=== PATIENT | female | born 1990 | race Caucasian/White ===

== ENCOUNTER 2017-06-28 10:47 | Emergency (ER) | payer MEDICAID ==
[~2017-06-28] VITALS: Ht 170.2 cm; Wt 80.6 kg
[2017-06-28] MEDS ORDERED: LORazepam 1 MG tablet PO ONE (11:40)
[2017-06-28] MEDS ORDERED: diphenhydrAMINE 25mg capsule PO ONE (11:40)
[2017-06-28 11:51] LABS: BASOPHILS % (AUTO) 0.4 % (0-1); EOSINOPHILS # (AUTO) 0.2 X10'3 (0-0.9); EOSINOPHILS % (AUTO) 1.9 % (0-6); HEMATOCRIT 38.3 % (35.0-45.0); HEMOGLOBIN 13.4 g/dl (12.0-16.0); LYMPHOCYTES # (AUTO) 2.9 X10'3 (1.1-4.8); LYMPHOCYTES % (AUTO) 32.8 % (21-51); MEAN CORPUSCULAR HEMOGLOBIN 32.1 PG (27.0-31.0); MEAN CORPUSCULAR HGB CONC 35.1 % (33.0-36.5); MEAN CORPUSCULAR VOLUME 91.3 FL (78-98); MEAN PLATELET VOLUME 7.4 FL (7.4-10.4); MONOCYTES # (AUTO) 1.1 X10'3 (0-0.9); MONOCYTES % (AUTO) 12.3 % (2-12); NEUTROPHILS # (AUTO) 4.7 X10'3 (1.8-7.7); NEUTROPHILS % (AUTO) 52.6 % (42-75); PLATELET COUNT 273 X10'3 (140-440); RED BLOOD COUNT 4.19 X10'6 (4.20-5.60); RED CELL DISTRIBUTION WIDTH 13.9 % (11.5-14.5); WHITE BLOOD COUNT 8.9 X10'3 (4.5-11.0)
[2017-06-28 12:02] LABS: ALANINE AMINOTRANSFERASE 34 U/L (12-78); ALBUMIN 4.2 G/DL (3.4-5.0); ALBUMIN/GLOBULIN RATIO 1.2 (1.1-1.5); ALKALINE PHOSPHATASE 72 IU/L (46-116); ANION GAP 11 (8-16); ASPARTATE AMINO TRANSFERASE 47 U/L (10-37); BILIRUBIN,TOTAL 0.5 MG/DL (0.1-1.0); BLOOD UREA NITROGEN 27 MG/DL (7-18); CALCIUM 9.1 MG/DL (8.5-10.1); CHLORIDE 104 MMOL/L (99-107); GLUCOSE 86 MG/DL (70-104); POTASSIUM 4.4 MMOL/L (3.5-5.1); SODIUM 141 MMOL/L (135-145); TOTAL CARBON DIOXIDE 25.6 MMOL/L (24-32); TOTAL PROTEIN 7.8 G/DL (6.4-8.2); eGFR 68 ML/MIN
[2017-06-28 12:11] LABS: URINE HCG NEGATIVE (NEG)
[2017-06-28 12:12] LABS: CLARITY,URINE CLOUDY (Clear); GLUCOSE, URINE NEGATIVE (Neg); KETONES,URINE TRACE mg/dl (Neg); LEUKOCYTE ESTERASE ,URINE NEGATIVE (Neg); NITRITES, URINE NEGATIVE (Neg); OCCULT BLOOD,URINE NEGATIVE (Neg); PH,URINE 5.5 (4.8-8.0); PROTEIN,URINE NEGATIVE (Neg)
[2017-06-28] MEDS ORDERED: CLON-527 PO (12:12)
[2017-06-28] MEDS ORDERED: DIVA500T7 PO (12:12)
[2017-06-28] MEDS ORDERED: BUPR150T8 PO (12:12)
[2017-06-28] MEDS ORDERED: ESCI10TA54 PO (12:12)
[2017-06-28] MEDS ORDERED: ZIPR80CA2 PO (12:12)
[2017-06-28] MEDS ORDERED: QUET-1 PO (12:12)
[2017-06-28] MEDS ORDERED: DIVA-81 PO ×2 (12:12)
[2017-06-28 12:14] LABS: UA COLLECTION TYPE CLN CATCH MIDSTREAM
[2017-06-28 12:15] LABS: COLOR,URINE DARK YELLOW (Yellow)
[2017-06-28 12:20] LABS: BACTERIA,URINE 1+ /HPF (Neg); HYALINE CASTS 0-3 /LPF (NEGATIVE); MUCUS STRANDS MANY /LPF (Neg); RBC,URINE NONE SEEN /HPF (0-2); SQUAMOUS EPITHELIAL CELL,UR MANY /LPF (FEW); URINE AMPHETAMINE SCREEN POSITIVE (Neg); URINE BARBITUATE SCREEN NEGATIVE (Neg); URINE BENZODIAZEPINES SCREEN NEGATIVE (Neg); URINE CANNABINOID SCREEN POSITIVE (Neg); URINE COCAINE SCREEN NEGATIVE (Neg); URINE METHADONE SCREEN NEGATIVE (Neg); URINE OPIATE SCREEN NEGATIVE (Neg); URINE PHENCYCLIDINE SCREEN NEGATIVE (Neg)
[2017-06-28] MEDS ORDERED: cephalexin 250mg capsule PO SCH (12:40)
[2017-06-28] MEDS: cephalexin 500mg capsule PO SCH ×3 (13:13→21:00)
[2017-06-29] MEDS: cephalexin 500mg capsule PO SCH ×3 (07:36→21:13)
[2017-06-29] MEDS ORDERED: risperiDONE 0.5mg tablet PO PRN (12:35)
[2017-06-29] MEDS ORDERED: LORazepam 1 MG tablet PO PRN (12:50)
[2017-06-29] MEDS ORDERED: LORazepam 2 mg/ml vial IM PRN (12:50)
[2017-06-29] MEDS ORDERED: diphenhydrAMINE 25mg capsule PO PRN (12:55)
[2017-06-29] MEDS ORDERED: diphenhydrAMINE 50 mg/ml inj IM PRN (13:00)
[2017-06-29] MEDS: lactobacillus rhamnosus 10,000 MMU CELLS/CAPSULE PO SCH (17:30)
[2017-06-29] MEDS ORDERED: ibuprofen tablet 400 MG TABLET PO PRN (21:05)
[2017-06-30] MEDS: lactobacillus rhamnosus 10,000 MMU CELLS/CAPSULE PO SCH ×2 (08:08→17:59)
[2017-06-30] MEDS: cephalexin 500mg capsule PO SCH ×2 (08:08→14:11)
[2017-06-30 17:57] VITALS: BP 112/70
== END 2017-06-30 20:08 ==
LOC: ER 10:48
DX: F41.9 Anxiety disorder, unspecified (principal); N39.0 Urinary tract infection, site not specified; R45.851 Suicidal ideations; M54.5 Low back pain; F11.10 Opioid abuse, uncomplicated; F15.10 Other stimulant abuse, uncomplicated; F12.10 Cannabis abuse, uncomplicated; F32.9 Major depressive disorder, single episode, unspecified; F17.210 Nicotine dependence, cigarettes, uncomplicated; Z59.0 Homelessness; Z56.0 Unemployment, unspecified; Z98.890 Other specified postprocedural states; Z79.899 Other long term (current) drug therapy
CPT/HCPCS: 36415; 80053; 80305; 80320; 81001; 81025; 84443; 85025; 99285; Q0163

== ENCOUNTER 2018-02-18 01:00 | Emergency (ER) | payer MEDICAID ==
[~2018-02-18] VITALS: Ht 170.2 cm; Wt 72.0 kg
[~2018-02-18 01:00] MED LIST: BUPR150T8 PO; CLON-527 PO; DIVA-76 PO; DIVA-81 PO; ESCI10TA54 PO; QUET-1 PO; ZIPR80CA2 PO
[2018-02-18] MEDS ORDERED: ondansetron 4mg rapidly disintigrating tab PO ONE (02:00)
[2018-02-18 02:25] LABS: URINE HCG NEGATIVE (NEG)
[2018-02-18 02:26] LABS: CLARITY,URINE CLEAR (Clear); COLOR,URINE YELLOW (Yellow); GLUCOSE, URINE NEGATIVE (Neg); KETONES,URINE 15 mg/dl (Neg); LEUKOCYTE ESTERASE ,URINE NEGATIVE (Neg); NITRITES, URINE NEGATIVE (Neg); OCCULT BLOOD,URINE NEGATIVE (Neg); PROTEIN,URINE TRACE mg/dl (Neg); UROBILINOGEN,URINE 0.2 E.U/dL (0.2-1.0)
[2018-02-18 02:27] LABS: UA COLLECTION TYPE CLN CATCH MIDSTREAM
[2018-02-18 02:36] LABS: URINE AMPHETAMINE SCREEN POSITIVE (Neg); URINE BARBITUATE SCREEN NEGATIVE (Neg); URINE BENZODIAZEPINES SCREEN NEGATIVE (Neg); URINE CANNABINOID SCREEN POSITIVE (Neg); URINE COCAINE SCREEN NEGATIVE (Neg); URINE METHADONE SCREEN NEGATIVE (Neg); URINE OPIATE SCREEN NEGATIVE (Neg); URINE PHENCYCLIDINE SCREEN NEGATIVE (Neg)
[2018-02-18 02:40] LABS: BACTERIA,URINE 2+ /HPF (Neg); MUCUS STRANDS MANY /LPF (Neg); RBC,URINE 0-2 /HPF (0-2); SQUAMOUS EPITHELIAL CELL,UR MANY /LPF (FEW)
[2018-02-18] MEDS ORDERED: ONDA8TAB9 PO (03:05)
[2018-02-18 03:17] VITALS: BP 126/76
== END 2018-02-18 03:20 | disposition home or self-care (01) ==
LOC: ER 01:01
DX: R11.2 Nausea with vomiting, unspecified (principal); R10.9 Unspecified abdominal pain; F12.90 Cannabis use, unspecified, uncomplicated; F11.90 Opioid use, unspecified, uncomplicated; Z79.899 Other long term (current) drug therapy; Z59.0 Homelessness; Z56.0 Unemployment, unspecified
CPT/HCPCS: 80305; 81001; 81025; 99284

== ENCOUNTER 2018-06-22 01:47 | Emergency (ER) | payer MEDICAID ==
[~2018-06-22] VITALS: Ht 170.2 cm; Wt 64.8 kg
[~2018-06-22 01:47] MED LIST changes: +ONDA8TAB9 PO
[2018-06-22 01:55] VITALS: BP 133/92
[2018-06-22] MEDS ORDERED: ziprasidone IM 20mg inj **IM only IM ONE (02:15)
== END 2018-06-22 02:35 | disposition home or self-care (01) ==
LOC: ER 01:47
DX: F28 Other psychotic disorder not due to a substance or known physiological condition (principal); F32.9 Major depressive disorder, single episode, unspecified; F41.9 Anxiety disorder, unspecified; F12.90 Cannabis use, unspecified, uncomplicated; F11.90 Opioid use, unspecified, uncomplicated; Z56.0 Unemployment, unspecified; Z59.0 Homelessness; Z98.890 Other specified postprocedural states; Z79.899 Other long term (current) drug therapy
CPT/HCPCS: 96372; 99284; J3486; 99283

== ENCOUNTER 2018-07-29 18:48 | Emergency (ER) | payer MEDICAID ==
[~2018-07-29] VITALS: Ht 170.2 cm; Wt 80.0 kg
[2018-07-29 19:16] VITALS: BP 129/86
--- NOTE | 2018-07-29 20:26 | NUR ---
PT IS 28 YO FEMALE C/O "GOING OUT OF MY HEAD...SEEING THINGS WITH HORNS ON THEIR HEAD", PT SAID SHE DID METH ONE WEEK AGO, PLANS TO "SHOOT UP WITH BLEACH", HAS ATTEMPTED SUICIDE 5X IN THE PAST FROM CUTTING SELF TO OD ON MEDS, CLOTHES ARE WET PT SAID SHE HAS BEEN OUT IN THE RAIN, TALKING TO SELF, PT IS SLIGHTLY AGITATED BUT ABLE TO REDIRECT, PT AGREES TO STAY AND BE EVALUATED, AGREES TO NOT HURT SELF. PT ALSO SAID SHE HAS BEEN OFF HER MEDS FOR 3-4MONTHS, HAS BEEN IN [place] FOR ONE MONTH, MOVED HERE FROM [place]
--- NOTE | 2018-07-29 20:48 | NUR ---
PT HAS BEEN EVALUATED BY Emile LEMA,
--- NOTE | 2018-07-29 20:54 | NUR ---
TELEPSYCH INITIATED, SECURITY IN ROOM TO GO THROUGH BACK PACK
--- NOTE | 2018-07-29 23:26 | NUR ---
PT REMAINS IN RAP WAITING ROOM, CALM, COOPERATIVE, TALKING TO SELF AT TIMES, WAITING FOR TELEPSYCH
--- NOTE | 2018-07-29 23:59 | NUR ---
TELEPSYCH PROVIDER WILL BE EVALUATING PT SOON
== END 2018-07-30 01:57 | disposition home or self-care (01) ==
LOC: ER 18:49
DX: F29 Unspecified psychosis not due to a substance or known physiological condition (principal); F41.9 Anxiety disorder, unspecified; F32.9 Major depressive disorder, single episode, unspecified; F12.90 Cannabis use, unspecified, uncomplicated; F11.90 Opioid use, unspecified, uncomplicated; Z98.890 Other specified postprocedural states; Z59.0 Homelessness; Z56.0 Unemployment, unspecified; Z79.899 Other long term (current) drug therapy
CPT/HCPCS: 99284

== ENCOUNTER 2018-08-11 21:38 | Emergency (ER) | payer MEDICAID ==
[~2018-08-11] VITALS: Ht 172.7 cm; Wt 69.5 kg
--- NOTE | 2018-08-12 02:38 | NUR ---
UPON ENTERING THE ROOM PT IS SLEEPING ON THE GURNEY, NO DISTRESS NOTED. PT AWAKENS WITH A STARTLE WHEN I CALL HER NAME. C\O LEG PAIN. SHE IS GIVEN GOWN AND WARM BLANKET AND ASKED TO UNDRESS.
--- NOTE | 2018-08-12 02:47 | NUR ---
when observing pt ambulate to room from lobby, no signs of distress or disturbed gait were noted
--- NOTE | 2018-08-12 03:35 | NUR ---
pt once again sleeping. Her name is called loudly to arouse her. When asked why she is so tired she mumbles "huh?" - pt is not all that cooperative with history of present illness and willingness to assist RN with examination of bilateral lower extremities. pts BLE are red and slightly swollen. Poor hygeine to feet. pt relates being homeless.
--- NOTE | 2018-08-12 04:04 | NUR ---
PT SLEEPING SOUNDLY
[2018-08-12 04:59] VITALS: BP 112/54
== END 2018-08-12 05:03 | disposition home or self-care (01) ==
LOC: ER 21:39
DX: M79.604 Pain in right leg (principal); M79.605 Pain in left leg; F12.90 Cannabis use, unspecified, uncomplicated; F11.90 Opioid use, unspecified, uncomplicated; Z56.0 Unemployment, unspecified; Z59.0 Homelessness; Z98.890 Other specified postprocedural states; Z79.899 Other long term (current) drug therapy
CPT/HCPCS: 99283

== ENCOUNTER 2018-08-14 03:52 | Emergency (ER) | payer MEDICAID ==
[~2018-08-14] VITALS: Ht 170.2 cm; Wt 67.8 kg
[2018-08-14 03:55] VITALS: BP 123/78
== END 2018-08-14 05:44 | disposition home or self-care (01) ==
LOC: ER 03:52
DX: M25.571 Pain in right ankle and joints of right foot (principal); R22.41 Localized swelling, mass and lump, right lower limb; F12.90 Cannabis use, unspecified, uncomplicated; F11.90 Opioid use, unspecified, uncomplicated; Z98.890 Other specified postprocedural states; Z59.0 Homelessness; Z56.0 Unemployment, unspecified; Z79.899 Other long term (current) drug therapy
CPT/HCPCS: 73610; 99283

== ENCOUNTER 2018-10-05 10:54 | Emergency (ER) | payer MEDICAID | END 2018-10-05 14:43 | disposition left against medical advice (07) | LOC: ER 10:55 | DX: M79.673 Pain in unspecified foot (principal); Z53.21 Procedure and treatment not carried out due to patient leaving prior to being seen by health care provider ==

== ENCOUNTER 2018-10-08 23:54 | Emergency (ER) | payer MEDICAID ==
[~2018-10-08] VITALS: Ht 167.6 cm; Wt 68.0 kg
[2018-10-08 23:59] VITALS: BP 132/82
--- NOTE | 2018-10-09 00:10 | NUR ---
PT SLEEPING IN ROOM IN NO APPARENT DISTRESS
== END 2018-10-09 01:08 | disposition home or self-care (01) ==
LOC: ER 23:55
DX: R10.84 Generalized abdominal pain (principal); F12.90 Cannabis use, unspecified, uncomplicated; F11.90 Opioid use, unspecified, uncomplicated; Z98.890 Other specified postprocedural states; Z79.899 Other long term (current) drug therapy; Z59.0 Homelessness; Z56.0 Unemployment, unspecified
CPT/HCPCS: 99281

== ENCOUNTER 2018-10-20 01:00 | Emergency (ER) | payer MEDICAID ==
[~2018-10-20] VITALS: Ht 165.1 cm; Wt 52.3 kg
[2018-10-20 01:09] VITALS: BP 120/80
== END 2018-10-20 01:11 | disposition home or self-care (01) ==
LOC: ER 01:01
DX: S90.822A Blister (nonthermal), left foot, initial encounter (principal); S90.821A Blister (nonthermal), right foot, initial encounter; F12.90 Cannabis use, unspecified, uncomplicated; F11.90 Opioid use, unspecified, uncomplicated; Z98.890 Other specified postprocedural states; Z79.899 Other long term (current) drug therapy; Z59.0 Homelessness; Z56.0 Unemployment, unspecified; X58.XXXA Exposure to other specified factors, initial encounter; Y93.89 Activity, other specified; Y92.89 Other specified places as the place of occurrence of the external cause; Y99.8 Other external cause status
CPT/HCPCS: 99281

== ENCOUNTER 2019-11-07 10:04 | Emergency (ER) | payer MEDICAID ==
[~2019-11-07] VITALS: Ht 172.7 cm; Wt 72.1 kg
[~2019-11-07 10:04] MED LIST changes: -ESCI10TA54 PO; +ESCI10TA61 PO
[2019-11-07 10:53] LABS: CLARITY,URINE CLEAR (Clear); COLOR,URINE YELLOW (Yellow); GLUCOSE, URINE NEGATIVE (Neg); KETONES,URINE NEGATIVE (Neg); LEUKOCYTE ESTERASE ,URINE NEGATIVE (Neg); NITRITES, URINE NEGATIVE (Neg); OCCULT BLOOD,URINE MODERATE (Neg); PH,URINE 6.5 (4.8-8.0); PROTEIN,URINE NEGATIVE (Neg); UA COLLECTION TYPE CLN CATCH MIDSTREAM; URINE HCG NEGATIVE (NEG); UROBILINOGEN,URINE 0.2 E.U/dL (0.2-1.0)
[2019-11-07 10:59] LABS: AMORPHOUS URATES 1+; BACTERIA,URINE FEW /HPF (Neg); MUCUS STRANDS FEW /LPF (Neg); SQUAMOUS EPITHELIAL CELL,UR FEW /LPF (FEW); WBC,URINE 0-4 /HPF (0-4)
[2019-11-07] MEDS ORDERED: CefTRIAXone 250MG IM Kit w/LIDOcaine IM ONE (11:20)
[2019-11-07] MEDS ORDERED: azithromycin 250mg tablet PO ONE (11:20)
--- NOTE | 2019-11-07 11:23 | NUR ---
FEMININE PAD AND DISPOSABLE UNDIES PROVIDED.
[2019-11-07] MEDS ORDERED: DOXY100C76 PO (12:10)
[2019-11-07] MEDS ORDERED: METR-159 PO (12:10)
[2019-11-07 12:39] VITALS: BP 122/80
[2019-11-08] MEDS ORDERED: ONDA8TAB6 PO (02:43)
[2019-11-08] MEDS ORDERED: DOXY100C76 PO (02:43)
[2019-11-08] MEDS ORDERED: METR-159 PO (02:43)
== END 2019-11-07 12:41 | disposition home or self-care (01) ==
LOC: ER 10:05
DX: N73.0 Acute parametritis and pelvic cellulitis (principal); A59.9 Trichomoniasis, unspecified; R10.32 Left lower quadrant pain; R10.31 Right lower quadrant pain; F41.9 Anxiety disorder, unspecified; F32.9 Major depressive disorder, single episode, unspecified; F12.90 Cannabis use, unspecified, uncomplicated; F11.90 Opioid use, unspecified, uncomplicated; Z98.890 Other specified postprocedural states; Z72.89 Other problems related to lifestyle; Z56.0 Unemployment, unspecified; Z59.0 Homelessness; Z79.2 Long term (current) use of antibiotics; Z79.899 Other long term (current) drug therapy
CPT/HCPCS: 36415; 81001; 81025; 87210; 87491; 87591; 96372; 99284; J0696; Q0112; 99283

== ENCOUNTER 2019-11-08 00:12 | Emergency (ER) | payer MEDICAID ==
[~2019-11-08] VITALS: Ht 172.7 cm; Wt 71.5 kg
[~2019-11-08 00:12] MED LIST changes: +DOXY100C76 PO; +METR-159 PO
[2019-11-08 00:18] VITALS: BP 108/84
[2019-11-08] MEDS ORDERED: ondansetron 4mg rapidly disintigrating tab PO ONE (01:15)
--- NOTE | 2019-11-08 01:50 | NUR ---
patient was visualized briskly walking out of emergency room with her shoes in hand and angry look on her face.
[2019-11-08 02:08] LABS: BASOPHILS # (AUTO) 0.1 X10'3 (0-0.2); BASOPHILS % (AUTO) 0.7 % (0-1); EOSINOPHILS # (AUTO) 0.2 X10'3 (0-0.9); EOSINOPHILS % (AUTO) 2.5 % (0-6); HEMATOCRIT 38.7 % (35.0-45.0); HEMOGLOBIN 12.8 g/dl (12.0-16.0); LYMPHOCYTES # (AUTO) 2.7 X10'3 (1.1-4.8); LYMPHOCYTES % (AUTO) 35.3 % (21-51); MEAN CORPUSCULAR HEMOGLOBIN 30.2 PG (27.0-31.0); MEAN CORPUSCULAR VOLUME 91.5 FL (78-98); MEAN PLATELET VOLUME 7.6 FL (7.4-10.4); MONOCYTES # (AUTO) 0.7 X10'3 (0-0.9); MONOCYTES % (AUTO) 9.8 % (2-12); NEUTROPHILS # (AUTO) 3.9 X10'3 (1.8-7.7); NEUTROPHILS % (AUTO) 51.7 % (42-75); PLATELET COUNT 322 X10'3 (140-440); RED BLOOD COUNT 4.23 X10'6 (4.20-5.60); RED CELL DISTRIBUTION WIDTH 14.6 % (11.5-14.5); WHITE BLOOD COUNT 7.6 X10'3 (4.5-11.0)
[2019-11-08 02:16] LABS: ALANINE AMINOTRANSFERASE 40 U/L (12-78); ALBUMIN 4.4 G/DL (3.4-5.0); ALBUMIN/GLOBULIN RATIO 1.3 (1.1-1.5); ALKALINE PHOSPHATASE 58 IU/L (46-116); ANION GAP 9 (8-16); ASPARTATE AMINO TRANSFERASE 26 U/L (10-37); BILIRUBIN,TOTAL 0.3 MG/DL (0.1-1.0); BLOOD UREA NITROGEN 26 MG/DL (7-18); BUN/CREATININE RATIO 27.1 (6.6-38.0); CALCIUM 9.4 MG/DL (8.5-10.1); CHLORIDE 107 MMOL/L (99-107); CREATININE 0.96 MG/DL (0.40-0.90); GLUCOSE 97 MG/DL (70-104); POTASSIUM 4.2 MMOL/L (3.5-5.1); SODIUM 144 MMOL/L (135-145); TOTAL CARBON DIOXIDE 28.2 MMOL/L (24-32); TOTAL PROTEIN 7.9 G/DL (6.4-8.2); eGFR 69 ML/MIN
[2019-11-08 02:26] LABS: BETA HCG,QUANTITATIVE < 1.0 mIU/ml; LIPASE 154 U/L (73-393)
[2019-11-08] MEDS ORDERED: METR-159 PO (02:43)
[2019-11-08] MEDS ORDERED: ONDA8TAB6 PO (02:43)
[2019-11-08] MEDS ORDERED: DOXY100C76 PO (02:43)
== END 2019-11-08 03:11 | disposition home or self-care (01) ==
LOC: ER 00:12
DX: R11.2 Nausea with vomiting, unspecified (principal); R10.9 Unspecified abdominal pain; F32.9 Major depressive disorder, single episode, unspecified; F41.9 Anxiety disorder, unspecified; F12.90 Cannabis use, unspecified, uncomplicated; F11.90 Opioid use, unspecified, uncomplicated; Z98.890 Other specified postprocedural states; Z59.0 Homelessness; Z56.0 Unemployment, unspecified; Z79.899 Other long term (current) drug therapy
CPT/HCPCS: 36415; 80053; 83690; 84702; 85025; 99283

== ENCOUNTER 2019-11-13 06:55 | Emergency (ER) | payer MEDICAID ==
[~2019-11-13] VITALS: Ht 170.2 cm; Wt 53.6 kg
[~2019-11-13 06:55] MED LIST changes: +ONDA8TAB6 PO
[2019-11-13] MEDS ORDERED: OLANZapine **IM** 10 mg inj. IM ONE (07:45)
[2019-11-13 07:53] LABS: BASOPHILS % (AUTO) 0.7 % (0-1); EOSINOPHILS # (AUTO) 0.2 X10'3 (0-0.9); EOSINOPHILS % (AUTO) 3.1 % (0-6); HEMATOCRIT 35.7 % (35.0-45.0); LYMPHOCYTES # (AUTO) 2.2 X10'3 (1.1-4.8); LYMPHOCYTES % (AUTO) 39.2 % (21-51); MEAN CORPUSCULAR HGB CONC 33.6 g/dL (33.0-36.5); MEAN CORPUSCULAR VOLUME 92.3 FL (78-98); MEAN PLATELET VOLUME 7.5 FL (7.4-10.4); MONOCYTES # (AUTO) 0.6 X10'3 (0-0.9); MONOCYTES % (AUTO) 11.1 % (2-12); NEUTROPHILS # (AUTO) 2.6 X10'3 (1.8-7.7); NEUTROPHILS % (AUTO) 45.9 % (42-75); PLATELET COUNT 327 X10'3 (140-440); RED BLOOD COUNT 3.87 X10'6 (4.20-5.60); RED CELL DISTRIBUTION WIDTH 14.5 % (11.5-14.5); WHITE BLOOD COUNT 5.6 X10'3 (4.5-11.0)
[2019-11-13 07:54] LABS: CLARITY,URINE SLIGHTLY CLOUDY (Clear); COLOR,URINE YELLOW (Yellow); GLUCOSE, URINE NEGATIVE (Neg); KETONES,URINE TRACE mg/dl (Neg); LEUKOCYTE ESTERASE ,URINE NEGATIVE (Neg); NITRITES, URINE NEGATIVE (Neg); OCCULT BLOOD,URINE NEGATIVE (Neg); PROTEIN,URINE NEGATIVE (Neg)
[2019-11-13 07:55] LABS: URINE HCG NEGATIVE (NEG)
[2019-11-13 07:58] LABS: UA COLLECTION TYPE CLN CATCH MIDSTREAM
[2019-11-13 08:01] LABS: BACTERIA,URINE 1+ /HPF (Neg); MUCUS STRANDS MANY /LPF (Neg); RBC,URINE 0-2 /HPF (0-2); SQUAMOUS EPITHELIAL CELL,UR FEW /LPF (FEW); WBC,URINE 0-4 /HPF (0-4)
[2019-11-13 08:06] LABS: ALANINE AMINOTRANSFERASE 27 U/L (12-78); ALBUMIN 4.2 G/DL (3.4-5.0); ALBUMIN/GLOBULIN RATIO 1.3 (1.1-1.5); ALKALINE PHOSPHATASE 55 IU/L (46-116); ANION GAP 8 (8-16); ASPARTATE AMINO TRANSFERASE 19 U/L (10-37); BILIRUBIN,TOTAL 0.6 MG/DL (0.1-1.0); BLOOD UREA NITROGEN 15 MG/DL (7-18); CHLORIDE 107 MMOL/L (99-107); CREATININE 0.88 MG/DL (0.40-0.90); GLUCOSE 81 MG/DL (70-104); POTASSIUM 3.9 MMOL/L (3.5-5.1); SODIUM 143 MMOL/L (135-145); TOTAL CARBON DIOXIDE 28.4 MMOL/L (24-32); TOTAL PROTEIN 7.4 G/DL (6.4-8.2); eGFR 77 ML/MIN
[2019-11-13 08:08] LABS: URINE AMPHETAMINE SCREEN POSITIVE (Neg); URINE BARBITUATE SCREEN NEGATIVE (Neg); URINE BENZODIAZEPINES SCREEN NEGATIVE (Neg); URINE CANNABINOID SCREEN POSITIVE (Neg); URINE COCAINE SCREEN NEGATIVE (Neg); URINE METHADONE SCREEN NEGATIVE (Neg); URINE OPIATE SCREEN NEGATIVE (Neg); URINE PHENCYCLIDINE SCREEN NEGATIVE (Neg)
[2019-11-13 08:15] LABS: ETHANOL < 0.010 GM/DL (0.0-0.010)
--- NOTE | 2019-11-13 08:28 | NUR ---
patient asleep at this time.
--- NOTE | 2019-11-13 09:30 | NUR ---
patient on left side asleep,respirations regular.
--- NOTE | 2019-11-13 12:49 | NUR ---
Received to OF room 21. Snack given. Unable to answer questions coherently, gets very aggravated.
--- NOTE | 2019-11-13 13:07 | NUR ---
PACKET FAXED TO [facility]
[2019-11-13] MEDS ORDERED: LORazepam 2 mg/ml vial IM ONE (14:35)
--- NOTE | 2019-11-13 14:48 | NUR ---
Upon being interviewed by county worker, pt became very angry, yelling and uncooperative. Ativan IM given to pt.
--- NOTE | 2019-11-13 15:18 | NUR ---
primary RN was sent on lunch break. pt sleeping on her left side no s/s of respiratory distress at this time.
[2019-11-13] MEDS: ziprasidone 20mg capsule PO SCH (17:05)
--- NOTE | 2019-11-13 17:12 | NUR ---
Pt sleeping soundly on left side. Respirations even and unlabored.
--- NOTE | 2019-11-13 18:20 | NUR ---
Pt requested and received a second dinner tray.
--- NOTE | 2019-11-13 18:30 | NUR ---
Pt requested a warm blanket and sandwich.
--- NOTE | 2019-11-13 18:35 | NUR ---
Pt refusing to answer questions to [facility] worker stating she is tired. She states she will listen, but is unable to answer questions at this time.
[2019-11-13] MEDS: divalproex sodium 250mg tablet PO SCH (20:00)
--- NOTE | 2019-11-13 20:00 | NUR ---
Pt resting quietly, respirations normal, no s/s of distress.
[2019-11-13] MEDS ORDERED: clonazePAM 1mg tablet PO SCH (21:00)
[2019-11-13] MEDS ORDERED: quetiapine 100mg tablet PO SCH (21:00)
--- NOTE | 2019-11-13 21:00 | NUR ---
Pt resting quietly, respirations normal, no s/s of distress.
--- NOTE | 2019-11-13 22:00 | NUR ---
Pt resting quietly, respirations normal, no s/s of distress.
--- NOTE | 2019-11-13 23:00 | NUR ---
Pt resting quietly, respirations normal, no s/s of distress.
--- NOTE | 2019-11-13 23:50 | NUR ---
Pt resting quietly, respirations normal, no s/s of distress.
--- NOTE | 2019-11-14 01:03 | NUR ---
Pt requesting sandwich and juice.
--- NOTE | 2019-11-14 01:04 | NUR ---
Pt yelling profanities when offered water.
--- NOTE | 2019-11-14 02:30 | NUR ---
Pt resting quietly, respirations normal, no s/s of distress.
--- NOTE | 2019-11-14 03:58 | NUR ---
Pt resting quietly, respirations normal, no s/s of distress.
[2019-11-14 05:25] VITALS: BP 102/64
--- NOTE | 2019-11-14 06:20 | NUR ---
Patient sleeping, no needs noted. Will cont. to monitor.
--- NOTE | 2019-11-14 07:30 | NUR ---
Patient sleeping, no needs noted. Will continue to monitor.
[2019-11-14] MEDS ORDERED: ESCITALOPRAM OXALATE 5 MG TABLET PO SCH (08:00)
[2019-11-14] MEDS ORDERED: buPROPion SR 150mg tablet PO SCH (08:00)
[2019-11-14] MEDS: ziprasidone 20mg capsule PO SCH (08:07)
[2019-11-14] MEDS: divalproex sodium 250mg tablet PO SCH (08:08)
--- NOTE | 2019-11-14 08:16 | NUR ---
Administered am meds. Nurse asked if she was having thoughts of harming herself and patient states yes and has a plan but doesn't want to talk about it.
--- NOTE | 2019-11-14 09:31 | NUR ---
Patient sleeping at this time, no s/sx of distress noted. Will cont. to monitor.
--- NOTE | 2019-11-14 09:54 | NUR ---
Plan for patient to go upstairs to behavioral health unit within the hour. Patient aware of this.
--- NOTE | 2019-11-14 10:30 | NUR ---
[employer] tech here to collect patient and belongings to transfer upstairs.
--- NOTE | 2019-11-14 10:34 | NUR ---
Tx's upstairs at this time, patient was calm/cooperative with escort of security.
[2019-11-14] MEDS ORDERED: NO HOME MEDS (17:58)
== END 2019-11-14 10:34 ==
LOC: ER 06:55
DX: F20.9 Schizophrenia, unspecified (principal); R45.851 Suicidal ideations; F32.9 Major depressive disorder, single episode, unspecified; F15.90 Other stimulant use, unspecified, uncomplicated; F12.90 Cannabis use, unspecified, uncomplicated; Z72.89 Other problems related to lifestyle; Z60.2 Problems related to living alone; Z56.0 Unemployment, unspecified; Z59.0 Homelessness; Z79.899 Other long term (current) drug therapy
CPT/HCPCS: 36415; 80053; 80305; 80320; 81001; 81025; 84443; 85025; 96372; 99285; J2060; J3490